=== PATIENT | male | born 1965 | race Caucasian/White ===

== ENCOUNTER 2016-07-22 11:58 | Emergency (ER) | payer MEDICAID ==
[~2016-07-22] VITALS: Ht 170.2 cm; Wt 118.5 kg
[~2016-07-22 11:58] MED LIST: CEPH-443 PO; CIPR500T4 PO; HYDR-3498 PO; NAPR-260 PO; OMEP20CA9 PO; OXYC-281 PO; RANI150T9 PO; TAMS-14 PO
[2016-07-22 11:59] VITALS: Ht 170.2 cm; Wt 118.5 kg
[2016-07-22] MEDS ORDERED: SOD CHLORIDE 0.9% 1,000 ML IV STA (13:07)
[2016-07-22] MEDS ORDERED: ONDANSETRON 4 MG INJ IV STA (13:07)
[2016-07-22] MEDS ORDERED: morphine 4 MG/ML VIAL IV STA (13:07)
--- NOTE | 2016-07-22 13:53 | RADRPT ---
PROCEDURE: CT Abdomen and Pelvis without contrast. CLINICAL INDICATION: Abdominal pain. History of kidney stones. TECHNIQUE: Multiple contiguous axial CT images of the abdomen and pelvis were obtained without the administration of intravenous contrast. Coronal and sagittal reconstructions were also performed. CTDIvol (mGy): 22.97; Total Exam DLP (mGy-cm): 1530.24. One or more of the following dose reduction techniques were utilized: - Automated exposure control. - Adjustment of the mA and/or kV according to patient size. - Use of iterative reconstruction technique. COMPARISON: Renal ultrasound 02/05/2016. CT abdomen/pelvis 12/25/2012. FINDINGS: Limited imaging of the lower thorax is unremarkable. The liver and spleen are homogeneous in density. The liver is diffusely low in attenuation compatib le with fatty infiltration. The gallbladder is surgically absent. The pancreas and adrenal glands are unremarkable. There is mild left hydronephrosis and mild perinephric edema secondary to a 3 mm stone at the ureter ovesical junction. Multiple stones are seen within the right kidney with the largest measuring 7 mm within the upper pole. There is a small cluster of stones within the lower pole of the right kidne y. There is a 5-6 mm stone within the lower pole of the left kidney. There is mild fat stranding s urrounding the right renal pelvis which may reflect sequelae of chronic inflammation. This is uncha nged from prior examination. The abdominal aorta is normal in caliber. There is no periaortic / retroperitoneal lymphadenopathy. The stomach and small and large intestines are unremarkable. The appendix is normal. There are no focal inflammatory changes of the mesentery. There is no mesenteric lymphadenopathy. There is no a scites. The bladder is normal in contour. The prostate gland is mildly enlarged measuring approximately 5.0 x 4.2 x 4.6 cm yielding a volume of 50 cc. The seminal vesicles are unremarkable. There is no free pelvic fluid. There is no pelvic sidewall or inguinal lymphadenopathy. Mild degenerative changes of the lumbar and lower thoracic spine are present. There is a small fat c ontaining midline ventral abdominal wall hernia. IMPRESSION: Mild left hydronephrosis and perinephric edema secondary to a 3 mm stone of the ureterovesical junct ion. Bilateral nephrolithiasis. Mild fat stranding surrounds the right renal pelvis which may be a resul t of chronic inflammation. This is unchanged from prior examination. Enlarged prostate. Small fat containing midline ventral abdominal wall hernia. RPTAT: PP .Bri Woods MD, Date Time Electronically viewed and signed by .Bri Woods MD, on 07/22/2016 13:53 .T/
[2016-07-22 14:02] LABS: ADD UMIC YES; URINE BILIRUBIN (Dip) NEGATIVE (NEGATIVE); URINE BLOOD (Dip) 3+ (NEGATIVE); URINE COLOR LT. YELLOW (YELLOW); URINE GLUCOSE (Dip) NEGATIVE (NEGATIVE); URINE KETONES (Dip) NEGATIVE (NEGATIVE); URINE LEUKOCYTE ESTERASE (Dip) 2+ (NEGATIVE); URINE NITRITE (Dip) NEGATIVE (NEGATIVE); URINE TOTAL PROTEIN (Dip) 2+ (NEGATIVE); URINE UROBILINOGEN (Dip) 0.2 E.U./dL (0.1-1.0)
[2016-07-22 14:18] LABS: URINE RBCS >200 /HPF ([, 0])
[2016-07-22 14:20] LABS: BACTERIA,URINE FEW
[2016-07-22 14:42] LABS: BASOPHILS % 0.1 % (0.0-2.0); EOSINOPHILS # 0.1 10^3/ul (0.0-0.5); EOSINOPHILS % 0.7 % (0.0-7.0); HEMATOCRIT 46.8 % (42.0-52.0); LYMPHOCYTES # 1.3 10^3/ul (0.8-2.9); LYMPHOCYTES % 11.3 % (15.0-51.0); MEAN CORPUSCULAR HEMOGLOBIN 30.6 pg (29.0-33.0); MEAN CORPUSCULAR HGB CONC 34.1 g/dl (32.0-37.0); MEAN CORPUSCULAR VOLUME 89.6 fl (82.0-101.0); MEAN PLATELET VOLUME 8.7 fl (7.4-10.4); MONOCYTE # 0.6 10^3/ul (0.3-0.9); MONOCYTES % 4.8 % (0.0-11.0); NEUTROPHIL # 9.7 10^3/ul (1.6-7.5); NEUTROPHILS % 83.1 % (39.0-77.0); PLATELET COUNT 182 10^3/UL (140-440); RED BLOOD COUNT 5.23 10^6/ul (4.70-6.10); RED CELL DISTRIBUTION WIDTH 13.3 % (11.5-14.5); UNCORRECTED WBC 11.6 10^3/ul (4.8-10.8); WHITE BLOOD COUNT 11.6 10^3/ul (4.8-10.8)
[2016-07-22 14:46] LABS: CONDITION 1
[2016-07-22 14:56] LABS: ALBUMIN 4.6 g/dl (3.3-4.9); CHLORIDE 102 mmol/L (97-110)
[2016-07-22 14:57] LABS: SODIUM 144 mmol/L (135-144)
[2016-07-22 14:59] LABS: ANION GAP 19 (8-16); BILIRUBIN,INDIRECT 0.5 mg/dl (0-1.1); BILIRUBIN,TOTAL 0.5 mg/dl (0.2-1.3); CARBON DIOXIDE 27 mmol/L (21-31); CREATININE 1.17 mg/dl (0.61-1.24)
[2016-07-22 15:00] LABS: ALANINE AMINOTRANSFERASE 44 IU/L (13-69); ALBUMIN/GLOBULIN RATIO 1.27; ALKALINE PHOSPHATASE 115 IU/L (42-121); ASPARTATE AMINO TRANSFERASE 31 IU/L (15-46); BLOOD UREA NITROGEN 21 mg/dl (7-20); CALCIUM 9.4 mg/dl (8.4-10.2); GLUCOSE 96 mg/dl (70-220); TOTAL PROTEIN 8.2 g/dl (6.1-8.1)
[2016-07-22] MEDS ORDERED: CEFTRIAXONE 1 GM/50 ML (PMX) 50 ML IVPB ONE (15:00)
[2016-07-22 15:29] LABS: TROPONIN-I < 0.010 ng/ml (0.00-0.12)
[2016-07-22] MEDS ORDERED: LIDOCAINE/MYLANTA 40 ML BTL PO ONE (17:30)
[2016-07-22] MEDS ORDERED: ONDA4TAB8 PO (17:58)
[2016-07-22] MEDS ORDERED: HYDR-906 PO (17:58)
[2016-07-22] MEDS ORDERED: CIPR500T4 PO (17:58)
[2016-07-22] MEDS ORDERED: IBUP-1542 PO (17:58)
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
[2016-07-22 18:58] VITALS: BP 128/76; PULSE 67; RESP 18; TEMP 98.8
== END 2016-07-22 18:50 | disposition home or self-care (01) ==
LOC: FTE 11:58
DX: N39.0 Urinary tract infection, site not specified (principal); N20.0 Calculus of kidney; F17.210 Nicotine dependence, cigarettes, uncomplicated; R11.2 Nausea with vomiting, unspecified; E66.9 Obesity, unspecified; R07.89 Other chest pain; Z68.41 Body mass index [BMI] 40.0-44.9, adult
CPT/HCPCS: 36415; 74176; 80053; 81001; 83690; 84484; 85025; 93005; 96374; 96375; J0696; J2270; J2405; J7030; Z7502; Z7610; 81003

== ENCOUNTER 2016-11-05 07:21 | Emergency (ER) | payer MEDICAID ==
[~2016-11-05] VITALS: Ht 172.7 cm; Wt 118.0 kg
[~2016-11-05 07:21] MED LIST changes: +HYDR-906 PO; +IBUP-1542 PO; +ONDA4TAB8 PO
[2016-11-05 07:23] VITALS: Ht 172.7 cm; Wt 118.0 kg
[2016-11-05] MEDS ORDERED: SOD CHLORIDE 0.9% 1,000 ML IV STA (08:05)
[2016-11-05] MEDS ORDERED: KETOROLAC 15 MG INJ IV STA (08:05)
[2016-11-05] MEDS ORDERED: ONDANSETRON 4 MG INJ IV STA (08:05)
[2016-11-05] MEDS ORDERED: morphine 4 MG/ML VIAL IV STA ×2 (08:05→13:06)
--- NOTE | 2016-11-05 08:08 | ERD ---
ER Documentation Chief Complaint Date/Time DATE: 11/05/16 TIME: 08:06 Chief Complaint left lower abd pain x 6 hrs HPI Patient is a 50-year-old male with history of bilateral kidney stones who presents with sudden onset, constant, moderate, cramping pain to the left lower quadrant for 5 hours. The pain woke him from sleep. Patient feels nauseous, no vomiting, no diarrhea or constipation, no fever. The patient denies hematuria or dysuria, denies testicular pain. She reports mild left-sided back pain. ROS All systems reviewed and are negative except as per history of present illness. Medications Home Meds Active Scripts Ibuprofen* (Motrin*) 600 Mg Tab, 600 MG PO Q8H Y for PAIN, #20 TAB Prov:HEIDI SANTIAGO MD 11/05/16 Ondansetron Hcl* (Zofran*) 4 Mg Tab, 4 MG PO Q4H Y for NAUSEA AND OR VOMITING, # 20 TAB Prov:HEIDI SANTIAGO MD 11/05/16 Ciprofloxacin Hcl* (Ciprofloxacin Hcl*) 500 Mg Tablet, 500 MG PO BID for 14 Days , #14 TAB Prov:HEIDI SANTIAGO MD 11/05/16 Oxycodone HCl/Acetaminophen (Percocet 5-325 mg Tablet) 1 Each Tablet, 1 EACH PO Q4 Y for PAIN, #24 TAB Prov:HEIDI SANTIAGO MD 11/05/16 Ondansetron Hcl* (Zofran*) 4 Mg Tablet, 4 MG PO Q6H for NAUSEA AND/OR VOMITING, #30 TAB Prov:TERRANCE RIVERO 07/22/16 Ibuprofen* (Motrin*) 600 Mg Tab, 600 MG PO Q6, #30 TAB Prov:TERRANCE RIVERO 07/22/16 Hydrocodone/Acetaminophen ([place] 5-325 Tablet) 1 Each Tablet, 1 TAB PO Q6H Y for PAIN, #10 TAB Prov:TERRANCE RIVERO 07/22/16 Ciprofloxacin Hcl* (Ciprofloxacin Hcl*) 500 Mg Tablet, 500 MG PO BID for 14 Days , TAB Prov:TERRANCE RIVERO 07/22/16 Hydrocodone Bit-Acetaminophen* ([place]*) 5-325 Mg Tab, 1 TAB PO Q6 Y for PAIN, # 14 TAB Prov:ELIAS MANUEL PA-C 02/06/16 Ciprofloxacin Hcl* (Ciprofloxacin Hcl*) 500 Mg Tablet, 500 MG PO BID for 10 Days , TAB Prov:BELINDA VASQUEZ NP 01/17/16 Ranitidine Hcl* (Zantac*) 150 Mg Tablet, 150 MG PO BID Y for EPIGASTRIC PAIN, # 30 TAB Prov:BELINDA VASQUEZ NP 01/17/16 Cephalexin* (Keflex*) 500 Mg Capsule, 500 MG PO QID for 7 Days, CAP Prov:ESTEPHANIE MAJANO MD 12/26/15 Naproxen* (Naprosyn*) 500 Mg Tablet, 500 MG PO BID Y for PAIN AND/OR INFLAMMATION, #30 TAB Prov:ESTEPHANIE MAJANO MD 12/26/15 Oxycodone Hcl-Acetaminophen* (Percocet*) 5-325 Mg Tablet, 1 TAB PO TID for PAIN , #15 TAB Prov:ESTEPHANIE MAJANO MD 12/26/15 Tamsulosin Hcl* (Flomax*) 0.4 Mg Cap.er.24h, 0.4 MG PO QPM, #30 CAP Prov:ELIZABETH BEY NP 12/16/15 Omeprazole* (Prilosec*) 20 Mg Capsule.dr, 20 MG PO DAILY for 14 Days, CAP Prov:BELINDA VASQUEZ NP 02/27/15 Allergies Allergies: Coded Allergies: No Known Drug Allergy (Verified Allergy, Unknown, 12/26/15) PMhx/Soc Past medical history: Kidney stones Past surgical history: Removal of kidney stones Social history: Occasional tobacco and alcohol. History of Surgery: Yes (lithotripsy for previous kidney stone) Anesthesia Reaction: No Hx Neurological Disorder: No Hx Respiratory Disorders: Yes (anxiety) Hx Cardiac Disorders: No Hx Psychiatric Problems: No Hx Miscellaneous Medical Probl: No (obese ) Hx Alcohol Use: Yes Hx Substance Use: No Hx Tobacco Use: Yes FmHx Family History: No coronary disease, No diabetes Physical Exam Vitals Vital Signs Date Time Temp Pulse Resp B/P Pulse Ox O2 Delivery O2 Flow Rate FiO2 11/05/16 07:23 98.4 76 18 169/87 98 Physical Exam Const: Alert, no acute distress Head: Atraumatic Eyes: Normal Conjunctiva, no pallor, no icterus ENT: Normal External Ears, Nose and Mouth. Moist mucous membranes Neck: Full range of motion..~ No meningismus. Resp: Clear to auscultation bilaterally, no wheezes, no rales Cardio: Regular rate and rhythm, no murmurs Abd: Soft, non tender, non distended. Normal bowel sounds Skin: No petechiae or rashes Back: No midline tenderness, positive mild left CVA tenderness. Ext: No cyanosis, or edema Neur: Awake and alert, cranial nerves II through XII intact bilaterally, strength and sensation intact in 4 extremities. Psych: Normal Mood and Affect Result Diagram: 11/05/16 0835 11/05/16 0835 Results 24 hrs Laboratory Tests Test 11/05/16 08:35 White Blood Count 7.410^3/ul Red Blood Count 5.2810^6/ul Hemoglobin 16.2g/dl Hematocrit 47.4% Mean Corpuscular Volume 89.8fl Mean Corpuscular Hemoglobin 30.7pg Mean Corpuscular Hemoglobin Concent 34.2g/dl Red Cell Distribution Width 13.2% Platelet Count 43857^3/UL Mean Platelet Volume 10.6fl Neutrophils % 65.8% Lymphocytes % 23.0% Monocytes % 6.1% Eosinophils % 3.4% Basophils % 0.5% Nucleated Red Blood Cells % 0.0/100WBC Neutrophils # 4.810^3/ul Lymphocytes # 1.710^3/ul Monocytes # 0.510^3/ul Eosinophils # 0.310^3/ul Basophils # 0.010^3/ul Nucleated Red Blood Cells # 0.010^3/ul Urine Color LT. YELLOW Urine Clarity CLOUDY Urine pH 5.5 Urine Specific [place] 1.020 Urine Ketones NEGATIVE Urine Nitrite NEGATIVE Urine Bilirubin NEGATIVE Urine Urobilinogen 0.2 E.U./dL Urine Leukocyte Esterase 2+ Urine Microscopic RBC >200/HPF Urine Microscopic WBC >200/HPF Urine Epithelial Cells OCCASIONAL Urine Bacteria MODERATE Urine Hemoglobin 3+ Urine Glucose NEGATIVE% Urine Total Protein 1+ Sodium Level 143mmol/L Potassium Level 4.2mmol/L Chloride Level 103mmol/L Carbon Dioxide Level 27mmol/L Anion Gap 17 Blood Urea Nitrogen 19mg/dl Creatinine 1.23mg/dl Glucose Level 129mg/dl Calcium Level 9.6mg/dl Current Medications Medications (Trade) Dose Ordered Sig/Andreas Route PRN Reason Start Time Stop Time Status Last Admin Dose Admin Sodium Chloride (NS) 1,000 ml @ 1,000 mls/hr Q1H STAT IV 11/05/16 08:05 11/05/16 09:04 DC 11/05/16 08:44 Morphine Sulfate (morphine) 4 mg ONCE STAT IV 11/05/16 08:05 11/05/16 08:07 DC 11/05/16 08:44 Ondansetron HCl (Zofran Inj) 4 mg ONCE STAT IV 11/05/16 08:05 11/05/16 08:07 DC 11/05/16 08:44 Ketorolac Tromethamine 15 mg 15 mg ONCE STAT IV 11/05/16 08:05 11/05/16 08:07 DC 11/05/16 08:44 Ceftriaxone Sodium (Rocephin) 50 ml @ 100 mls/hr ONCE ONCE IVPB 11/05/16 11:00 11/05/16 11:29 DC 11/05/16 12:23 Morphine Sulfate (morphine) 4 mg ONCE STAT IV 11/05/16 13:06 11/05/16 13:07 DC 11/05/16 13:45 Procedures/MDM CT abdomen and pelvis: 8.4 cm left distal ureteral stone, moderate hydronephrosis with perinephric stranding. MDM: Patient is a 50-year-old male with acute left lower quadrant pain who is found to have a large ureteral stone. The patient does have significant leukocytes in the urine and some bacteria suggestive of UTI, but does not have fever or leukocytosis, does not have significant CVA tenderness to suggest obstructed pyelonephritis. The patient was given IV fluids and antibiotics in the ER, and pain was well-controlled. I will discharge him home with strict return precautions for fever, vomiting, severe pain, and I have advised him to follow-up in the next few days with his urologist at [facility], who he saw during his last episode of nephrolithiasis. There is a low probability of spontaneous passage of the stone based upon its size. I will prescribe the patient ciprofloxacin for UTI, Percocet for pain, Zofran for nausea, and Motrin for pain as well. Patient has normal renal function and electrolyte abnormality. Departure Diagnosis: Primary Impression: Ureterolithiasis Additional Impression: UTI (urinary tract infection) Condition: Stable HEIDI SANTIAGO MD Nov 05, 2016 08:08
[2016-11-05 09:18] LABS: ADD SCAN DIFF NO
[2016-11-05 09:21] LABS: BASOPHILS % 0.5 % (0.0-2.0); EOSINOPHILS # 0.3 10^3/ul (0.0-0.5); EOSINOPHILS % 3.4 % (0.0-7.0); HEMATOCRIT 47.4 % (42.0-52.0); HEMOGLOBIN 16.2 g/dl (14.0-18.0); LYMPHOCYTES # 1.7 10^3/ul (0.8-2.9); MEAN CORPUSCULAR HEMOGLOBIN 30.7 pg (29.0-33.0); MEAN CORPUSCULAR HGB CONC 34.2 g/dl (32.0-37.0); MEAN CORPUSCULAR VOLUME 89.8 fl (82.0-101.0); MEAN PLATELET VOLUME 10.6 fl (7.4-10.4); MONOCYTE # 0.5 10^3/ul (0.3-0.9); MONOCYTES % 6.1 % (0.0-11.0); NEUTROPHIL # 4.8 10^3/ul (1.6-7.5); NEUTROPHILS % 65.8 % (39.0-77.0); PLATELET COUNT 168 10^3/UL (140-415); RED BLOOD COUNT 5.28 10^6/ul (4.70-6.10); RED CELL DISTRIBUTION WIDTH 13.2 % (11.5-14.5); WHITE BLOOD COUNT 7.4 10^3/ul (4.8-10.8)
[2016-11-05 09:24] LABS: ADD UMIC YES; URINE BILIRUBIN (Dip) NEGATIVE (NEGATIVE); URINE BLOOD (Dip) 3+ (NEGATIVE); URINE COLOR LT. YELLOW (YELLOW); URINE GLUCOSE (Dip) NEGATIVE (NEGATIVE); URINE KETONES (Dip) NEGATIVE (NEGATIVE); URINE LEUKOCYTE ESTERASE (Dip) 2+ (NEGATIVE); URINE NITRITE (Dip) NEGATIVE (NEGATIVE); URINE TOTAL PROTEIN (Dip) 1+ (NEGATIVE); URINE UROBILINOGEN (Dip) 0.2 E.U./dL (0.1-1.0)
[2016-11-05 09:29] LABS: POTASSIUM 4.2 mmol/L (3.5-5.1)
[2016-11-05 09:32] LABS: CALCIUM 9.6 mg/dl (8.4-10.2); CREATININE 1.23 mg/dl (0.61-1.24)
[2016-11-05 09:43] LABS: BACTERIA,URINE MODERATE; URINE RBCS >200 /HPF (0)
[2016-11-05] MEDS ORDERED: CEFTRIAXONE 2 GM/50 ML (PMX) 50 ML IVPB ONE (11:00)
--- NOTE | 2016-11-05 14:24 | RADRPT ---
PROCEDURE: CT KUB (renal stone survey). CLINICAL INDICATION: Left flank pain and abdominal pelvic pain. Left lower quadrant pain. Rule o ut kidney stone. TECHNIQUE: CT KUB (Renal Stone Survey) without contrast was performed on a multidetector high-reso lution CT scanner. No IV contrast was administered. Coronal and sagittal reformatted images were o btained from the axial source images. Images were reviewed on a high-resolution PACS workstation. Th e total exam CTDI equals 23.59 mGy and the total exam DLP equals 1477.06 mGy-cm. One or more of the following dose reduction techniques were used: - Automated exposure control. - Adjustment of the mA and/or kV according to patient size. - Use of iterative reconstruction technique. COMPARISON: CT scan abdomen pelvis dated 07/22/2016 FINDINGS: CT renal stone survey: Previously identified left intrarenal calculus has now prolapsed down into the left ureter. There i s an 8.3 mm calculus in the mid left ureter causing moderate proximal obstruction. The [place] m easurements within this calculus measure approximate 350-400 HU. As a result, there is moderate lef t-sided hydronephrosis with moderate left perinephric stranding and edema. The remainder of the mid and distal left ureter is decompressed and unremarkable. Several small calculi are seen within the right intrarenal collecting system. Fullness and thickening and induration and edema of the urothe lium of the right intrarenal collecting system is seen, unchanged over time. No acute obstruction i s present. The right ureter is flaccid in appearance, but no obstructing calculus is seen within th e right ureter at this time. The right kidney is normal in size and position and morphology. The left kidney is normal in positi on and morphology, although enlarged and engorged due to the acute obstructive uropathy. The right perinephric space is unremarkable. The bladder is partially collapsed and decompressed, but otherwi se unremarkable. No bladder calculus is seen at this time. There was a small bladder calculus at t he time of the previous study which has now resolved. CT abdomen: The lung bases are clear. The heart size is normal, without pericardial thickening or effusion. The liver is normal in size and density without focal mass or intrahepatic biliary dilatation. The spl een is normal in size and homogeneous in density. The stomach is partially collapsed, but is grossl y unremarkable. The pancreas as visualized is normal. The gallbladder is surgically absent; the bi liary tree is unremarkable and there is no evidence for biliary dilatation. The adrenal glands are symmetric and normal. The aorta is of normal caliber. Aortic vascular calcifications are present. There is no retroperitoneal lymphadenopathy. Small shoddy retroperitoneal nodes are seen, benign and reactive in nature. No pathologic lymphadenopathy is identified. The valente hepatis region is will r. The bowel and mesentery, as visualized, are equally unremarkable. Small midline ventral anterior epigastric abdominal wall is seen containing mesenteric fat only, stable. CT pelvis: The small bowel loops situated within the pelvis are unremarkable. The appendix is normal. The pelvi c organs are markable for mild enlargement of the prostate gland, stable over time. The pelvic side armstrong and inguinal regions are clear. The sigmoid colon and rectum are all is unremarkable. No pel anya mass or adenopathy is seen. No significant free fluid is identified. No acute inflammation is se en. The surrounding osseous structures are remarkable for degenerative spondylosis of the spine. No ost eolytic or osteoblastic lesion is detected. IMPRESSION: 1. 8.3 mm calculus in the mid left ureter causing moderate proximal obstructive uropathy. 2. Moderate acute left-sided hydronephrosis with associated perinephric stranding and edema. 3. Small calculi with urothelial thickening within the right intrarenal collecting system, stable. 4. Other benign chronic changes seen elsewhere throughout the study, stable over time. RPTAT: HMJB .Lenny Barth MD, Date Time Electronically viewed and signed by .Lenny Barth MD, MD on 11/05/2016 14:24 .B/
[2016-11-05] MEDS ORDERED: ONDA-43 PO (14:42)
[2016-11-05] MEDS ORDERED: CIPR500T4 PO (14:42)
[2016-11-05] MEDS ORDERED: IBUP-1542 PO (14:42)
[2016-11-05] MEDS ORDERED: OXYC-279 PO (14:42)
[2016-11-05] MEDS ORDERED: OXYCODONE/ACETAMINOPHEN (10/325) TAB PO ONE (16:00)
[2016-11-05] MEDS ORDERED: ACETAMINOPHEN 325 MG TAB PO PRN (16:00)
[2016-11-05] MEDS ORDERED: ONDANSETRON 4 MG INJ IV PRN (16:00)
[2016-11-05] MEDS ORDERED: HYDROmorphONE 1 MG/ML SYG IV STA (16:11)
[2016-11-05] MEDS ORDERED: OXYC-209 PO (16:43)
[2016-11-05 17:41] VITALS: BP 143/91; PULSE 67; RESP 18; TEMP 98.4
== END 2016-11-05 17:32 | disposition home or self-care (01) ==
LOC: E/R 07:21
DX: N20.1 Calculus of ureter (principal); N39.0 Urinary tract infection, site not specified; Z87.891 Personal history of nicotine dependence
CPT/HCPCS: 36415; 74176; 80048; 81001; 85025; 87086; 96361; 96365; 96366; 96375; 96376; J0696; J1170; J1885; J2270; J2405; J7030; Z7502; Z7610; 81003

== ENCOUNTER 2017-07-26 13:54 | Emergency (ER) | END 2017-07-26 16:44 | disposition left against medical advice (07) ==

== ENCOUNTER 2017-07-28 17:53 | Emergency (ER) | END 2017-07-28 19:22 | disposition home or self-care (01) ==

== ENCOUNTER 2017-09-04 02:23 | Inpatient (IN) | END 2017-09-04 03:18 | disposition left against medical advice (07) | DRG 313 ==

== ENCOUNTER 2018-05-26 17:10 | Emergency (ER) | END 2018-05-26 18:00 | disposition home or self-care (01) ==

== ENCOUNTER 2018-05-27 18:57 | Emergency (ER) | END 2018-05-28 00:15 | disposition left against medical advice (07) ==

== ENCOUNTER 2018-05-29 22:12 | Emergency (ER) | END 2018-05-30 01:52 | disposition home or self-care (01) ==

== ENCOUNTER 2018-10-18 07:40 | Emergency (ER) | payer MEDICAID ==
[~2018-10-18] VITALS: Ht 172.7 cm; Wt 108.0 kg
[~2018-10-18 07:40] MED LIST changes: +ACET1TAB40 PO; +HYDR-4011 PO; -HYDR-906 PO; -NAPR-260 PO; +NAPR-985 PO; +ONDA4TAB13 PO; +OXYC-209 PO; +OXYC-279 PO; +RANI150T35 PO; -RANI150T9 PO
[2018-10-18 07:43] VITALS: BP 154/82; PULSE 67; RESP 20; Ht 172.7 cm; Wt 108.0 kg
[2018-10-18] MEDS ORDERED: KETOROLAC 60 MG INJ IM STA (08:14)
[2018-10-18] MEDS ORDERED: NAPR-985 PO (08:17)
[2018-10-18] MEDS ORDERED: HYDR-4011 PO (08:17)
[2018-10-18] MEDS ORDERED: CYCL10TA7 PO (08:17)
[2018-10-18] MEDS ORDERED: DIAZEPAM 5 MG TAB PO ONE (08:30)
[2018-10-18] MEDS ORDERED: DEXAMETHASONE 10 MG/ML 1 ML INJ IM ONE (08:30)
--- NOTE | 2018-10-18 09:12 | ERD ---
ER Documentation Chief Complaint Chief Complaint pt is bib self with c/o back pain staring 4 days ago HPI 52-year-old male presenting with back pain times 4 days. Patient works in construction. Patient's pain is worse with movement. He denies any lower leg weakness. He has not denies any recent falls or injuries. Has not taken medications for his pain. Denies any changes in urination or bowel movement. Denies medical problems. Allergy to aspirin. Surgical history denies. Social history denies ROS All systems reviewed and are negative except as per history of present illness. Medications Home Meds Active Scripts Cyclobenzaprine Hcl* (Cyclobenzaprine Hcl*) 10 Mg Tablet, 10 MG PO TID, #15 TAB Prov:HARVINDER SANTANA PA-C 10/18/18 Naproxen* (Naprosyn*) 500 Mg Tablet, 500 MG PO BID PRN for PAIN AND/OR INFLAMMATION, #30 TAB Prov:HARVINDER SANTANA PA-C 10/18/18 Hydrocodone/Acetaminophen ([place] 5-325 Tablet) 1 Each Tablet, 1 TAB PO Q6H PRN for PAIN, #7 TAB Prov:HARVINDER SANTANA PA-C 10/18/18 Acetaminophen with Codeine (Acetaminophen-Cod #3 Tablet) 1 Each Tablet, 1 TAB PO Q6H PRN for PAIN, #7 TAB Prov:SARWAT POLK 05/30/18 Ciprofloxacin Hcl* (Ciprofloxacin Hcl*) 500 Mg Tablet, 500 MG PO BID for 10 Days, TAB Prov:SARWAT POLK 05/30/18 Tamsulosin Hcl* (Flomax*) 0.4 Mg Cap.er.24h, 0.4 MG PO QPM, #30 CAP Prov:RILEY PHILIPPE MD 05/26/18 Hydrocodone/Acetaminophen ([place] 5-325 Tablet) 1 Each Tablet, 1 TAB PO Q6H PRN for PAIN, #7 TAB Prov:RILEY PHILIPPE MD 05/26/18 Ibuprofen* (Motrin*) 600 Mg Tab, 600 MG PO Q8, #30 TAB Prov:RILEY PHILIPPE MD 05/26/18 Hydrocodone/Acetaminophen ([place] 5-325 Tablet) 1 Each Tablet, 1 TAB PO Q6H PRN for PAIN, #7 TAB Prov:ASHLEY BLOOM PA-C 07/28/17 Naproxen* (Naprosyn*) 500 Mg Tablet, 500 MG PO BID PRN for PAIN AND/OR INFLAMMATION, #30 TAB Prov:ASHLEY BLOOM PA-C 07/28/17 Oxycodone HCl/Acetaminophen (Percocet 10-325 mg Tablet) 1 Each Tablet, 1 EACH PO TID for PAIN, #16 TAB Prov:THERESA ELIAS MD 11/05/16 Ibuprofen* (Motrin*) 600 Mg Tab, 600 MG PO Q8H PRN for PAIN, #20 TAB Prov:HEIDI SANTIAGO MD 11/05/16 Ondansetron Hcl* (Zofran*) 4 Mg Tab, 4 MG PO Q4H PRN for NAUSEA AND OR VOMITING, #20 TAB Prov:HEIDI SANTIAGO MD 11/05/16 Ciprofloxacin Hcl* (Ciprofloxacin Hcl*) 500 Mg Tablet, 500 MG PO BID for 14 Days, #14 TAB Prov:HEIDI SANTIAGO MD 11/05/16 Oxycodone HCl/Acetaminophen (Percocet 5-325 mg Tablet) 1 Each Tablet, 1 EACH PO Q4 PRN for PAIN, #24 TAB Prov:HEIDI SANTIAGO MD 11/05/16 Ondansetron Hcl* (Zofran*) 4 Mg Tablet, 4 MG PO Q6H for NAUSEA AND/OR VOMITING, #30 TAB Prov:TERRANCE RIVERO 07/22/16 Ibuprofen* (Motrin*) 600 Mg Tab, 600 MG PO Q6, #30 TAB Prov:TERRANCE RIVERO 07/22/16 Hydrocodone/Acetaminophen ([place] 5-325 Tablet) 1 Each Tablet, 1 TAB PO Q6H PRN for PAIN, #10 TAB Prov:TERRANCE RIVERO 07/22/16 Ciprofloxacin Hcl* (Ciprofloxacin Hcl*) 500 Mg Tablet, 500 MG PO BID for 14 Days, TAB Prov:TERRANCE RIVERO 07/22/16 Hydrocodone Bit-Acetaminophen* ([place]*) 5-325 Mg Tab, 1 TAB PO Q6 PRN for PAIN, #14 TAB Prov:ELIAS MANUEL PA-C 02/06/16 Ciprofloxacin Hcl* (Ciprofloxacin Hcl*) 500 Mg Tablet, 500 MG PO BID for 10 Days, TAB Prov:BELINDA VASQUEZ NP 01/17/16 Ranitidine Hcl* (Zantac*) 150 Mg Tablet, 150 MG PO BID PRN for EPIGASTRIC PAIN, #30 TAB Prov:BELINDA VASQUEZ NP 01/17/16 Cephalexin* (Keflex*) 500 Mg Capsule, 500 MG PO QID for 7 Days, CAP Prov:ESTEPHANIE MAJANO MD 12/26/15 Naproxen* (Naprosyn*) 500 Mg Tablet, 500 MG PO BID PRN for PAIN AND/OR INFLAMMATION, #30 TAB Prov:ESTEPHANIE MAJANO MD 12/26/15 Oxycodone Hcl-Acetaminophen* (Percocet*) 5-325 Mg Tablet, 1 TAB PO TID for PAIN, #15 TAB Prov:ESTEPHANIE MAJANO MD 12/26/15 Tamsulosin Hcl* (Flomax*) 0.4 Mg Cap.er.24h, 0.4 MG PO QPM, #30 CAP Prov:ELIZABETH BEY NP 12/16/15 Omeprazole* (Prilosec*) 20 Mg Capsule.dr, 20 MG PO DAILY for 14 Days, CAP Prov:BELINDA VASQUEZ NP 02/27/15 Allergies Allergies: Coded Allergies: aspirin (Verified Allergy, Unknown, 09/03/17) PMhx/Soc History of Surgery: Yes (lithotripsy for previous kidney stone) Anesthesia Reaction: No Hx Neurological Disorder: No Hx Respiratory Disorders: No Hx Cardiac Disorders: No Hx Psychiatric Problems: No Hx Miscellaneous Medical Probl: No (KIDNEY STONE) Hx Alcohol Use: No Hx Substance Use: No Hx Tobacco Use: No Smoking Status: Never smoker FmHx Family History: No diabetes, No coronary disease, No other Physical Exam Vitals Vital Signs Date Temp Pulse Resp B/P (MAP) Pulse Ox O2 O2 Flow FiO2 Time Delivery Rate 10/18/18 98.0 67 20 154/82 100 07:43 (106) Physical Exam GENERAL: The patient is well-appearing, well-nourished, in no acute distress CHEST: Clear to auscultation bilaterally. There are no rales, wheezes or rhonchi. HEART: Regular rate and rhythm. No murmurs, clicks, rubs or gallops. ABDOMEN:Soft, nontender and nondistended. Good bowel sounds. No rebound or guarding. No gross peritonitis. No gross organomegaly or masses. BACK: No midline or flank tenderness. Tender palpation of bilateral paraspinous muscles. Results 24 hrs Current Medications Medications Dose Sig/Andreas Start Time Status Last (Trade) Ordered Route PRN Stop Time Admin Dose Reason Admin 10 mg ONCE ONCE 10/18/18 DC 10/18/18 Dexamethasone IM 08:30 08:26 (Decadron) 10/18/18 08:31 Diazepam 5 mg ONCE ONCE 10/18/18 DC 10/18/18 (Valium) PO 08:30 08:26 10/18/18 08:31 Ketorolac 60 mg ONCE STAT 10/18/18 DC 10/18/18 Tromethamine IM 08:14 08:26 (Toradol) 10/18/18 08:16 Procedures/MDM ER Course: Toradol. Decadron and Valium given in ED MDM: 52-year-old male presenting with back pain times 4 days. Patient has muscular skeletal strain and be discharged with supportive medications. I have low suspicion for acute fracture dislocation. I have low suspicion for cauda equina, I have low suspicion for epidural abscess. Patient is told symptoms change or worsen to return immediately to the ER. All questions answered at discharge. Departure Diagnosis: Primary Impression: Back pain Condition: Stable Patient Instructions: Back Pain (Acute Or Chronic) Referrals: [facility] YOU HAVE RECEIVED A MEDICAL SCREENING EXAM AND THE RESULTS INDICATE THAT YOU DO NOT HAVE A CONDITION THAT REQUIRES URGENT TREATMENT IN THE EMERGENCY DEPARTMENT. FURTHER EVALUATION AND TREATMENT OF YOUR CONDITION CAN WAIT UNTIL YOU ARE SEEN IN YOUR DOCTORS OFFICE WITHIN THE NEXT 1-2 DAYS. IT IS YOUR RESPONSIBILITY TO M [facility] AN APPOINTMENT FOR FOLOW-UP CARE. IF YOU HAVE A PRIMARY DOCTOR --you should call your primary doctor and schedule an appointment IF YOU DO NOT HAVE A PRIMARY DOCTOR YOU CAN CALL OUR PHYSICIAN REFERRAL HOTLINE AT IF YOU CAN NOT AFFORD TO SEE A PHYSICIAN YOU CAN CHOSE FROM THE FOLLOWING [facility] [address] [facility] [address] [facility] [address] [facility] [address] [facility] [facility] [address] [facility]. [facility] [address] Additional Instructions: FOLLOW UP WITH YOUR PRIMARY CARE PHYSICIAN TOMORROW.Return to this facility if you are not improving as expected. HARVINDER SANTANA PA-C Oct 18, 2018 09:12
[2018-10-19] MEDS ORDERED: CIPR500T4 PO (09:27)
== END 2018-10-18 09:19 | disposition home or self-care (01) ==
LOC: FTE 07:40
DX: M54.9 Dorsalgia, unspecified (principal)
CPT/HCPCS: 96372; J1100; J1885; Z7502; Z7610

== ENCOUNTER 2018-10-18 23:34 | Emergency (ER) | payer MEDICAID ==
[~2018-10-18] VITALS: Ht 170.2 cm; Wt 107.2 kg
[~2018-10-18 23:34] MED LIST changes: +CYCL10TA7 PO
[2018-10-19 00:08] VITALS: Ht 170.2 cm; Wt 107.2 kg
[2018-10-19] MEDS ORDERED: KETOROLAC 60 MG INJ IM STA (06:06)
[2018-10-19] MEDS ORDERED: DIAZEPAM 5 MG TAB PO ONE (06:30)
[2018-10-19] MEDS ORDERED: morphine 4 MG/ML VIAL IV STA (09:08)
[2018-10-19 09:14] VITALS: BP 136/72; PULSE 58; RESP 19
[2018-10-19] MEDS ORDERED: CIPR500T4 PO (09:27)
[2018-10-19] MEDS ORDERED: CEFTRIAXONE 1 GM INJ IM ONE (09:30)
[2018-10-19] MEDS ORDERED: LIDOCAINE 1% (MPF) 5 ML VIAL INJ ONE (09:30)
--- NOTE | 2018-10-19 10:15 | ERD ---
ER Documentation Chief Complaint Chief Complaint C/O LT LOWER BACK PAIN X4 DAYS, SEEN HERE THIS AM FOR SAME, ON PAIN MEDS HPI 52-year-old male presenting with lower back pain times 4 days. Patient was seen here yesterday and experienced pain after Valium, Decadron, Toradol was given however returned home and had continued pain. He states his pain is in the lower lumbar region and it hurts worse with movement. He denies any numbness or tingling. Denies any fevers. Patient works as a construction representative. He denies any changes in urination or bowel movement. Denies weakness to his legs. Has control of bladder and bowel. ROS All systems reviewed and are negative except as per history of present illness. Medications Home Meds Active Scripts Ciprofloxacin Hcl* (Ciprofloxacin Hcl*) 500 Mg Tablet, 500 MG PO BID for 10 Days, TAB Prov:HARVINDER SANTANA PA-C 10/19/18 Cyclobenzaprine Hcl* (Cyclobenzaprine Hcl*) 10 Mg Tablet, 10 MG PO TID, #15 TAB Prov:HARVINDER SANTANA PA-C 10/18/18 Naproxen* (Naprosyn*) 500 Mg Tablet, 500 MG PO BID PRN for PAIN AND/OR INFLAMMATION, #30 TAB Prov:HARVINDER SANTANA PA-C 10/18/18 Hydrocodone/Acetaminophen ([place] 5-325 Tablet) 1 Each Tablet, 1 TAB PO Q6H PRN for PAIN, #7 TAB Prov:HARVINDER SANTANA PA-C 10/18/18 Acetaminophen with Codeine (Acetaminophen-Cod #3 Tablet) 1 Each Tablet, 1 TAB PO Q6H PRN for PAIN, #7 TAB Prov:SARWAT POLK 05/30/18 Ciprofloxacin Hcl* (Ciprofloxacin Hcl*) 500 Mg Tablet, 500 MG PO BID for 10 Days, TAB Prov:SARWAT POLK 05/30/18 Tamsulosin Hcl* (Flomax*) 0.4 Mg Cap.er.24h, 0.4 MG PO QPM, #30 CAP Prov:RILEY PHILIPPE MD 05/26/18 Hydrocodone/Acetaminophen ([place] 5-325 Tablet) 1 Each Tablet, 1 TAB PO Q6H PRN for PAIN, #7 TAB Prov:HARDINToniaEASTON,RILEY MD 05/26/18 Ibuprofen* (Motrin*) 600 Mg Tab, 600 MG PO Q8, #30 TAB Prov:RILEY PHILIPPE MD 05/26/18 Hydrocodone/Acetaminophen ([place] 5-325 Tablet) 1 Each Tablet, 1 TAB PO Q6H PRN for PAIN, #7 TAB Prov:ASHLEY BLOOM PA-C 07/28/17 Naproxen* (Naprosyn*) 500 Mg Tablet, 500 MG PO BID PRN for PAIN AND/OR INFLAMMATION, #30 TAB Prov:ASHLEY BLOOMC 07/28/17 Oxycodone HCl/Acetaminophen (Percocet 10-325 mg Tablet) 1 Each Tablet, 1 EACH PO TID for PAIN, #16 TAB Prov:THERESA ELIAS MD 11/05/16 Ibuprofen* (Motrin*) 600 Mg Tab, 600 MG PO Q8H PRN for PAIN, #20 TAB Prov:HEIDI SANTIAGO MD 11/05/16 Ondansetron Hcl* (Zofran*) 4 Mg Tab, 4 MG PO Q4H PRN for NAUSEA AND OR VOMITING, #20 TAB Prov:HEIDI SANTIAGO MD 11/05/16 Ciprofloxacin Hcl* (Ciprofloxacin Hcl*) 500 Mg Tablet, 500 MG PO BID for 14 Days, #14 TAB Prov:HEIDI SANTIAGO MD 11/05/16 Oxycodone HCl/Acetaminophen (Percocet 5-325 mg Tablet) 1 Each Tablet, 1 EACH PO Q4 PRN for PAIN, #24 TAB Prov:HEIDI SANTIAGO MD 11/05/16 Ondansetron Hcl* (Zofran*) 4 Mg Tablet, 4 MG PO Q6H for NAUSEA AND/OR VOMITING, #30 TAB Prov:TERRANCE RIVERO 07/22/16 Ibuprofen* (Motrin*) 600 Mg Tab, 600 MG PO Q6, #30 TAB Prov:TERRANCE RIVERO C 07/22/16 Hydrocodone/Acetaminophen ([place] 5-325 Tablet) 1 Each Tablet, 1 TAB PO Q6H PRN for PAIN, #10 TAB Prov:TERRANCE RIVERO C 07/22/16 Ciprofloxacin Hcl* (Ciprofloxacin Hcl*) 500 Mg Tablet, 500 MG PO BID for 14 Day s, TAB Prov:TERRANCE RIVERO 07/22/16 Hydrocodone Bit-Acetaminophen* ([place]*) 5-325 Mg Tab, 1 TAB PO Q6 PRN for PAIN, #14 TAB Prov:ELIAS MANUEL PA-C 02/06/16 Ciprofloxacin Hcl* (Ciprofloxacin Hcl*) 500 Mg Tablet, 500 MG PO BID for 10 Days, TAB Prov:BELINDA VASQUEZ NP 01/17/16 Ranitidine Hcl* (Zantac*) 150 Mg Tablet, 150 MG PO BID PRN for EPIGASTRIC PAIN, #30 TAB Prov:BELINDA VASQUEZ NP 01/17/16 Cephalexin* (Keflex*) 500 Mg Capsule, 500 MG PO QID for 7 Days, CAP Prov:ESTEPHANIE MAJANO MD 12/26/15 Naproxen* (Naprosyn*) 500 Mg Tablet, 500 MG PO BID PRN for PAIN AND/OR INFLAMMATION, #30 TAB Prov:ESTEPHANIE MAJANO MD 12/26/15 Oxycodone Hcl-Acetaminophen* (Percocet*) 5-325 Mg Tablet, 1 TAB PO TID for PAIN, #15 TAB Prov:ESTEPHANIE MAJANO MD 12/26/15 Tamsulosin Hcl* (Flomax*) 0.4 Mg Cap.er.24h, 0.4 MG PO QPM, #30 CAP Prov:ELIZABETH BEY NP 12/16/15 Omeprazole* (Prilosec*) 20 Mg Capsule.dr, 20 MG PO DAILY for 14 Days, CAP Prov:BELINDA VASQUEZ NP 02/27/15 Allergies Allergies: Coded Allergies: aspirin (Verified Allergy, Unknown, 09/03/17) PMhx/Soc History of Surgery: Yes (lithotripsy for previous kidney stone) Anesthesia Reaction: No Hx Neurological Disorder: No Hx Respiratory Disorders: No Hx Cardiac Disorders: No Hx Psychiatric Problems: No Hx Miscellaneous Medical Probl: No (KIDNEY STONE) Hx Alcohol Use: No Hx Substance Use: No Hx Tobacco Use: No Smoking Status: Never smoker FmHx Family History: No diabetes, No coronary disease, No other Physical Exam Vitals Vital Signs Date Temp Pulse Resp B/P (MAP) Pulse Ox O2 O2 Flow FiO2 Time Delivery Rate 10/19/18 97.6 58 19 136/72 96 Room Air 09:14 (93) 10/19/18 98.7 70 19 138/71 96 00:08 (93) Physical Exam GENERAL: The patient is well-appearing, well-nourished, in no acute distress CHEST: Clear to auscultation bilaterally. There are no rales, wheezes or rhonch i. HEART: Regular rate and rhythm. No murmurs, clicks, rubs or gallops. ABDOMEN:Soft, nontender and nondistended. Good bowel sounds. No rebound or guarding. No gross peritonitis. No gross organomegaly or masses. BACK: No midline or flank tenderness. Palpation of paraspinous muscles of the lumbar spine. EXTREMITIES: Equal pulses bilaterally. There is no peripheral clubbing, cyanosis or edema. No focal swelling or erythema. Full range of motion. Grossly neurovascularly intact. NEUROLOGIC: Alert and oriented. Cranial nerves II through XII intact. Motor strength in all 4 extremities with 5 out of 5 strength. Sensation grossly intact. Normal speech and gait. SKIN: There is no apparent rash or petechiae. The skin is warm and dry. Result Diagram: 10/19/18 0819 10/19/1819 Results 24 hrs Laboratory Tests Test 10/19/18 08:09 10/19/18 08:12 10/19/18 08:19 Bedside Urine pH (LAB) 6.0 Bedside Urine Protein (LAB) 2+ Bedside Urine Glucose (UA) Negative Bedside Urine Ketones (LAB) Negative Bedside Urine Blood 3+ Bedside Urine Nitrite (LAB) Negative Bedside Urine Leukocyte Esterase 2+ (L Urine Color YELLOW Urine Clarity CLOUDY Urine pH 5.0 Urine Specific [place] 1.023 Urine Ketones NEGATIVE mg/dL Urine Nitrite NEGATIVE mg/dL Urine Bilirubin NEGATIVE mg/dL Urine Urobilinogen NEGATIVE mg/dL Urine Leukocyte Esterase 3+ Vicky/ul Urine Microscopic RBC 149 /HPF Urine Microscopic WBC > 182 /HPF Urine Squamous Epithelial Cells FEW /HPF Urine Bacteria FEW /HPF Urine Hemoglobin 3+ mg/dL Urine Glucose NEGATIVE mg/dL Urine Total Protein 1+ mg/dl White Blood Count 13.9 10^3/ul Red Blood Count 5.31 10^6/ul Hemoglobin 15.7 g/dl Hematocrit 46.8 % Mean Corpuscular Volume 88.1 fl Mean Corpuscular Hemoglobin 29.6 pg Mean Corpuscular 33.5 g/dl Hemoglobin Concent Red Cell Distribution Width 13.2 % Platelet Count 184 10^3/UL Mean Platelet Volume 10.4 fl Immature Granulocytes % 1.000 % Neutrophils % 83.0 % Lymphocytes % 10.5 % Monocytes % 5.4 % Eosinophils % 0.0 % Basophils % 0.1 % Nucleated Red Blood Cells % 0.0 /100WBC Immature Granulocytes # 0.140 10^3/ul Neutrophils # 11.5 10^3/ul Lymphocytes # 1.5 10^3/ul Monocytes # 0.8 10^3/ul Eosinophils # 0.0 10^3/ul Basophils # 0.0 10^3/ul Nucleated Red Blood Cells # 0.0 10^3/ul Sodium Level 140 mmol/L Potassium Level 4.4 mmol/L Chloride Level 108 mmol/L Carbon Dioxide Level 22 mmol/L Anion Gap 10 Blood Urea Nitrogen 23 mg/dl Creatinine 1.09 mg/dl Est Glomerular Filtrat > 60 mL/min Rate mL/min Glucose Level 165 mg/dl Calcium Level 9.8 mg/dl Total Bilirubin 0.5 mg/dl Direct Bilirubin 0.00 mg/dl Indirect Bilirubin 0.5 mg/dl Aspartate Amino 21 IU/L Transf (AST/SGOT) Alanine 24 IU/L Aminotransferase (ALT/SGPT) Alkaline Phosphatase 110 IU/L Total Protein 8.1 g/dl Albumin 4.7 g/dl Globulin 3.40 g/dl Albumin/Globulin Ratio 1.38 Lipase 42 U/L Current Medications Medications Dose Sig/Andreas Start Time Status Last (Trade) Ordered Route PRN Stop Time Admin Dose Reason Admin Ketorolac 60 mg ONCE STAT 10/19/18 DC 10/19/18 Tromethamine IM 06:06 06:25 (Toradol) 10/19/18 06:08 Diazepam 5 mg ONCE ONCE 10/19/18 DC 10/19/18 (Valium) PO 06:30 06:25 10/19/18 06:31 Morphine 4 mg ONCE STAT 10/19/18 DC 10/19/18 Sulfate IV 09:08 09:16 (morphine) 10/19/18 09:09 Ceftriaxone 1 gm ONCE ONCE 10/19/18 DC 10/19/18 Sodium IM 09:30 09:31 (Rocephin) 10/19/18 09:31 Lidocaine 5 ml ONCE ONCE 10/19/18 DC 4/13/19 (Xylocaine INJ 09:30 09:31 1% (Mpf)) 10/19/18 09:31 Procedures/MDM DIAGNOSTIC IMAGING REPORT Patient: JOSE VASQUEZ DOB: 1965 Age: 52 Sex: M MR #: [id number] DOS: 10/19/18 0606 Ordering MD: MARTIR SANTANA PA-C Location: [facility] Room/Bed: PROCEDURE: CT LUMBAR SPINE CLINICAL INDICATION: Lumbar spine pain. TECHNIQUE: Contiguous axial imaging was performed through the lumbar spine without contrast. Coronal and sagittal reformatting was utilized. DICOM images are available. CTDIvol: 38.25 mGy mGy. Total Exam DLP: 1284.29 mGy.cm mGy-cm. This CT exam was performed using one or more of the following dose reduction techniques: Automated exposure control, adjustment of the mA and/or kV according to patient size, use of iterative reconstruction technique. COMPARISON: CT abdomen pelvis dated May 29, 2018 FINDINGS: OSSEOUS STRUCTURES Fractures: None. Alignment: Maintained. DISC LEVELS Vertebral osteophytes are present throughout. 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 T12-L1: Maintained. L1-L2: Maintained. L2-L3: Disc is relatively maintained with mild disc bulging. There is mild bilateral neural foraminal stenosis. L3-L4: Maintained. L4-L5: Mild loss of disc height is present with mild disc bulging and ligamentum flavum hypertrophy contributing to mild to moderate additional central canal stenosis. L5-S1: Mild loss of disc height is present posteriorly. There is moderate bilateral neural foraminal stenosis pill SOFT TISSUES Slight atherosclerotic calcifications are present. Mild right-sided hydronephrosis is again seen with peripelvic stranding. IMPRESSION: 1. No fractures are seen. 2. Multilevel degenerative disc disease. 3. Mild right-sided hydronephrosis is again seen with peripelvic stranding. Follow-up CT urogram or further urologic evaluation may be helpful as warranted. DIAGNOSTIC IMAGING REPORT Patient: JOSE VASQUEZ DOB: 1965 Age: 52 Sex: M MR #: [id number] DOS: 10/19/18 0802 Ordering MD: MARTIR SANTANA PA-C Location: [facility] Room/Bed: PROCEDURE: CT Abdomen and pelvis without contrast. CLINICAL INDICATION: Abdominal pain TECHNIQUE: CT scan of the abdomen and pelvis without contrast was performed on a multidetector high-resolution CT scan. . Coronal and sagittal reformatted images were obtained from the axial source images. Standard CT scan of the abdomen pelvis without contrast protocols were performed. The total exam CTDI equals 23.09 mGy and the total exam DLP equals 1466.12 mGy- cm. One or more of the following dose reduction techniques were used: - Automated exposure control. - Adjustment of the mA and/or kV according to patient size. Use of iterative reconstruction technique. Dicom images are available COMPARISON: CT abdomen pelvis 05/29/2018 FINDINGS: The kidneys are normal in size. No change in the nonobstructing mid and inferior right renal calcified calculi. No left renal calcified calculi. No intra renal masses bilaterally. Mild right hydronephrosis without obstructing lesion demonstrated. No evidence of left hydronephrosis. No evidence of ureteral calcified calculi or dilatation. Urinary bladder partially contracted with wall thickening likely due to lack of optimal distension. Mild enlarged prostate unchanged. Correlation with PSA levels may be helpful. Mild diverticulosis of the sigmoid colon without CT evidence of diverticulitis. Remainder the colon is unremarkable. Stomach, small bowel and appendix are unremarkable. No evidence of intra-abdominal free air, free fluid, abscesses or lymphadenopathy. Status post prior cholecystectomy. No biliary ductal dilation. Again noted is hepatic calcification consistent with old granulomatous disease. No hepatic masses. Spleen pancreas adrenal glands unremarkable. Lung bases unremarkable. Atherosclerotic vascular disease of the common iliac arteries. No aortic aneurysm. No change in the ventral supraumbilical midline fat-containing hernia. No herniated hour strangulation. Degenerative changes lower thoracic and lumbar spine without acute osseous findings are osteoblastic/osteolytic lesions. IMPRESSION: 1. No change in the nonobstructing mid and inferior right renal calcified calculi. No change in the mild right hydronephrosis without obstructing lesion demonstrated. 2. No evidence of left urinary calcified calculi or obstructive uropathy. 3. Mild circumferential urinary wall thickening likely all due to lack of optimal distension. Cystitis or chronic obstruction cannot be excluded. 4. Mild enlarged prostate gland unchanged. Correlation with PSA levels may be helpful. 5. Mild diverticulosis of the sigmoid colon without CT evidence of diverticulitis. ER Course: 1L NS given in ED. Valium, Rocephin, Morphine and Toradol given in ED MDM: 2-year-old male presents with back pain. Patient was initially seen with complaints of back pain which appears to be muscular skeletal given pain was elicited with movement. I saw patient yesterday and he received pain medication with relief. Patient was returned today with continued pain. I decided to CT given he has a history of excessive movement and heavy lifting at work. Patient's CT with of the lumbar spine was concerning for possible infectious process versus hydronephrosis with nephrolithiasis site evaluated blood work and urine. Patient's urine showed signs of infection. CT scan of the abdomen did not show evidence of obstructing stone. This case was discussed with Dr. Sohail rodney prior to patient's discharge and given patient did not have signs of septic stone or sepsis patient will be discharged with oral outpatient management. Patient is discharged with antibiotics. Patient is discharged with strict ER precautions all questions answered at discharge Departure Diagnosis: Primary Impression: Back pain Additional Impression: UTI (urinary tract infection) Condition: Stable Patient Instructions: Understanding Urinary Tract Infections (UTIs), Back Pain (Acute Or Chronic) Referrals: [facility] YOU HAVE RECEIVED A MEDICAL SCREENING EXAM AND THE RESULTS INDICATE THAT YOU DO NOT HAVE A CONDITION THAT REQUIRES URGENT TREATMENT IN THE EMERGENCY DEPARTMENT. FURTHER EVALUATION AND TREATMENT OF YOUR CONDITION CAN WAIT UNTIL YOU ARE SEEN IN YOUR DOCTORS OFFICE WITHIN THE NEXT 1-2 DAYS. IT IS YOUR RESPONSIBILITY TO MAKE AN APPOINTMENT FOR FOLOW-UP CARE. IF YOU HAVE A PRIMARY DOCTOR --you should call your primary doctor and schedule an appointment IF YOU DO NOT HAVE A PRIMARY DOCTOR YOU CAN CALL OUR PHYSICIAN REFERRAL HOTLINE AT IF YOU CAN NOT AFFORD TO SEE A PHYSICIAN YOU CAN CHOSE FROM THE FOLLOWING [facility] [address] [facility] [address] [facility] [address] [facility] [address] [facility] [address] [facility]. [facility]. [address] Additional Instructions: FOLLOW UP WITH YOUR PRIMARY CARE PHYSICIAN TOMORROW.Return to this facility if you are not improving as expected. HARVINDER SANTANA PA-C Oct 19, 2018 10:15
== END 2018-10-19 09:43 | disposition home or self-care (01) ==
LOC: FTE 23:34
DX: N39.0 Urinary tract infection, site not specified (principal)
CPT/HCPCS: 36415; 72131; 74176; 80053; 81001; 83690; 85025; 87086; 96372; 96374; J1885; J2270; Z7502; Z7610; 81003